=== PATIENT | female | born 1955 | race Caucasian/White ===

== ENCOUNTER 2017-03-18 20:02 | Emergency (ER) | payer MEDICARE, MEDICAID ==
[2017-03-18 21:15] VITALS: BP 147/83
--- NOTE | 2017-03-18 21:39 | EDM.PDOC ---
ED HPI GENERAL MEDICAL PROBLEM - General Chief Complaint: Lower Extremity Injury/Pain Stated Complaint: RT FOOT SWOLLEN AND HURTS CAN HARDLY WALK Time Seen by Provider: 03/18/17 21:35 Source of Information: Reports: Patient History Limitations: Reports: No Limitations - History of Present Illness INITIAL COMMENTS - FREE TEXT/NARRATIVE: Pt was walking on when knee gave out on her, twisting her left foot. Now with increase in foot pain. Unable to wear a shoe. Has not taken anything for pain. Onset: Gradual Onset Date: 03/16/17 Duration: Getting Worse Location: Reports: Lower Extremity, Right Quality: Reports: Pressure Improves with: Reports: Rest Worsens with: Reports: Movement Context: Reports: Activity Associated Symptoms: Reports: No Other Symptoms Treatments PHARMACEUTICAL REPRESENTATIVE: Reports: Acetaminophen Right Feet Pain Score (Numeric/FACES): 8 - Related Data Allergies Allergy/AdvReac Type Severity Reaction Status Date / Time No Known Allergies Allergy Verified 03/18/17 21:22 Home Meds: Home Meds Folic Acid 1 mg PO DAILY 01/16/14 [History] Methotrexate Sodium [Methotrexate] 8 tab PO .EVERY 7 DAYS 01/16/14 [History] Multivitamin with Minerals [Multiple Vitamin] 1 tab PO DAILY 01/16/14 [History] traMADol [Ultram] 1 - 2 tab PO Q6H PRN 01/16/14 [History] Past Medical History Musculoskeletal History: Reports: RA Neurological History: Reports: Migraines - Infectious Disease History Infectious Disease History: Reports: Chicken Pox, Measles, Mumps - Past Surgical History GI Surgical History: Reports: Appendectomy, Cholecystectomy Musculoskeletal Surgical History: Reports: Hip Replacement Social & Family History - Tobacco Use Smoking Status *Q: Never Smoker Second Hand Smoke Exposure: No - Caffeine Use Caffeine Use: Reports: Coffee - Alcohol Use Days Per Week of Alcohol Use: 0 - Recreational Drug Use Recreational Drug Use: No Review of Systems - Review of Systems Review Of Systems: See Below Constitutional: Reports: No Symptoms Ears: Reports: No Symptoms Nose: Reports: No Symptoms Mouth/Throat: Reports: No Symptoms Respiratory: Reports: No Symptoms Cardiovascular: Reports: No Symptoms GI/Abdominal: Reports: No Symptoms Musculoskeletal: Reports: Foot Pain (right) Skin: Reports: No Symptoms Neurological: Reports: No Symptoms ED EXAM, GENERAL - Physical Exam Exam: See Below Exam Limited By: No Limitations General Appearance: Alert, WD/WN, No Apparent Distress Ears: Normal External Exam, Normal Canal, Hearing Grossly Normal, Normal TMs Nose: Normal Inspection, Normal Mucosa, No Blood Throat/Mouth: Normal Inspection, Normal Lips, Normal Teeth, Normal Gums, Normal Oropharynx, Normal Voice, No Airway Compromise Head: Atraumatic, Normocephalic Neck: Normal Inspection, Supple, Non-Tender, Full Range of Motion Respiratory/Chest: No Respiratory Distress, Lungs Clear, Normal Breath Sounds, No Accessory Muscle Use, Chest Non-Tender Cardiovascular: Normal Peripheral Pulses, Regular Rate, Rhythm, No Edema, No Gallop, No JVD, No Murmur, No Rub Extremities: Increased Warmth (mild warmth to top of right foot, tender over 5th metatarsal) Neurological: Alert, Oriented, CN II-XII Intact, Normal Cognition, Normal Gait, Normal Reflexes, No Motor/Sensory Deficits Course - Vital Signs Last Recorded V/S: Last Vital Signs Temp 97.7 F 03/18/17 21:19 Pulse 80 03/18/17 21:19 Resp 18 03/18/17 21:19 BP 147/83 H 03/18/17 21:19 Pulse Ox 96 03/18/17 21:19 - Orders/Labs/Meds Orders: Active Orders 24 hr Category Date Time Status Foot Comp Min 3V Rt [CR] Stat Exams 03/18/17 21:35 Ordered Meds: Medications Discontinued Medications Generic Name Dose Route Start Last Admin Trade Name Jhonatanq PRN Reason Stop Dose Admin Acetaminophen 650 mg 03/18/17 21:43 Tylenol PO 03/18/17 21:44 NOW ONE Departure - Departure Time of Disposition: 22:08 Disposition: Home, Self-Care 01 Condition: Good Clinical Impression: Acute pain of right foot - Discharge Information Referrals: Duc Gonzalez PA [Primary Care Provider] - Forms: ED Department Discharge Additional Instructions: Right foot xray without fracture. Tylenol 650mg po given in ER. May use every 4 hours as needed for pain. To wear a solid shoe for the next week. Fall precautions. Followup if pain persists. - Problem List & Annotations (1) Acute pain of right foot SNOMED Code(s): 32862634 Code(s): M79.671 - PAIN IN RIGHT FOOT Status: Acute Priority: Low Current Visit: Yes - My Orders Last 24 Hours: My Active Orders 03/18/17 21:35 Foot Comp Min 3V Rt [CR] Stat - Assessment/Plan Last 24 Hours: My Active Orders 03/18/17 21:35 Foot Comp Min 3V Rt [CR] Stat
[2017-03-18] MEDS ORDERED: Acetaminophen 325 MG Tab PO ONE (21:43)
--- NOTE | 2017-03-20 09:49 | CR ---
Foot Comp Min 3V Rt INDICATION: foot pain, fell FINDINGS: Degenerative changes most marked in the mid foot. Hammertoe deformities. No acute fracture .
== END 2017-03-18 22:24 | disposition home or self-care (01) ==
LOC: JP.ED 20:02
DX: M79.671 Pain in right foot (principal); G43.909 Migraine, unspecified, not intractable, without status migrainosus; Z90.49 Acquired absence of other specified parts of digestive tract; Z96.649 Presence of unspecified artificial hip joint; Z79.899 Other long term (current) drug therapy
CPT/HCPCS: 73630; 99284; A9270

== ENCOUNTER 2017-05-14 13:17 | Emergency (ER) | payer MEDICARE, MEDICAID ==
[2017-05-14 13:31] VITALS: BP 154/76
--- NOTE | 2017-05-14 13:56 | EDM.PDOC ---
ED HPI GENERAL MEDICAL PROBLEM - General Chief Complaint: Upper Extremity Injury/Pain Stated Complaint: RT WRIST HURTS (NO ACCIDENT) Time Seen by Provider: 05/14/17 13:35 Source of Information: Reports: Patient History Limitations: Reports: No Limitations - History of Present Illness INITIAL COMMENTS - FREE TEXT/NARRATIVE: Marilin presents today with complaints of right wrist pain for three days. She states she has been taking care of her grandchild and lifting/using hands and arms more. She states the pain is aching and dull. She has tried use of julito wrap for pain. Right Wrist Pain Score (Numeric/FACES): 6 - Related Data Allergies Allergy/AdvReac Type Severity Reaction Status Date / Time No Known Allergies Allergy Verified 05/14/17 13:32 Home Meds: Home Meds Folic Acid 1 mg PO DAILY 01/16/14 [History] Methotrexate Sodium [Methotrexate] 8 tab PO .EVERY 7 DAYS 01/16/14 [History] Multivitamin with Minerals [Multiple Vitamin] 1 tab PO DAILY 01/16/14 [History] traMADol [Ultram] 1 - 2 tab PO Q6H PRN 01/16/14 [History] Past Medical History Musculoskeletal History: Reports: RA Neurological History: Reports: Migraines - Infectious Disease History Infectious Disease History: Reports: Chicken Pox, Measles, Mumps - Past Surgical History GI Surgical History: Reports: Appendectomy, Cholecystectomy Musculoskeletal Surgical History: Reports: Hip Replacement Social & Family History - Tobacco Use Smoking Status *Q: Never Smoker Second Hand Smoke Exposure: No - Caffeine Use Caffeine Use: Reports: Coffee - Alcohol Use Days Per Week of Alcohol Use: 0 - Recreational Drug Use Recreational Drug Use: No Review of Systems - Review of Systems Review Of Systems: See Below Constitutional: Denies: Chills, Diaphoresis, Fever, Weakness Respiratory: Reports: No Symptoms Cardiovascular: Reports: No Symptoms GI/Abdominal: Reports: No Symptoms Musculoskeletal: Reports: Arm Pain, Other (Right wrist pain for three days. ) Skin: Denies: Bruising, Pruritis, Rash, Erythema, Wound Neurological: Reports: No Symptoms Psychiatric: Reports: No Symptoms ED EXAM, GENERAL - Physical Exam Exam: See Below Free Text/Narrative:: Marilin is an alert, oriented 61 year old female presenting with complaints of right wrist pain for three days. She denies direct trauma to the wrist, however has been lifting her grandchild frequently. She has a history of osteoporosis. Exam Limited By: No Limitations General Appearance: Alert, WD/WN, No Apparent Distress Eye Exam: Bilateral Eye: EOMI, Normal Inspection Head: Atraumatic, Normocephalic Neck: Normal Inspection, Supple, Non-Tender, Full Range of Motion. No: Lymphadenopathy (R), Lymphadenopathy (L) Respiratory/Chest: No Respiratory Distress, Lungs Clear, Normal Breath Sounds, No Accessory Muscle Use, Chest Non-Tender Cardiovascular: Normal Peripheral Pulses, Regular Rate, Rhythm, No Edema, No Murmur Peripheral Pulses: 2+: Radial (L), Radial (R) Back Exam: Normal Inspection, Full Range of Motion. No: CVA Tenderness (R), CVA Tenderness (L) Extremities: Normal Capillary Refill, Limited Range of Motion, Other ( Tenderness with palpation to distal radius/ulna). No: Joint Swelling, Increased Warmth, Redness Neurological: Alert, Oriented, CN II-XII Intact, Normal Cognition, Normal Gait, No Motor/Sensory Deficits Psychiatric: Normal Affect, Normal Mood Skin Exam: Warm, Dry, Intact, Normal Color, No Rash Lymphatic: No Adenopathy Course - Vital Signs Last Recorded V/S: Last Vital Signs Temp 36.1 C 05/14/17 13:32 Pulse 94 05/14/17 13:32 Resp 16 05/14/17 13:32 BP 154/76 H 05/14/17 13:32 Pulse Ox 98 05/14/17 13:32 - Orders/Labs/Meds Orders: Active Orders 24 hr Category Date Time Status Wrist 2V Rt [CR] Stat Exams 05/14/17 13:48 Taken - Radiology Interpretation Free Text/Narrative:: X-ray of right wrist wet read, negative for acute injury. Patient notified of findings, she is in agreement with plan. Departure - Departure Time of Disposition: 14:14 Disposition: Home, Self-Care 01 Condition: Good Clinical Impression: Right wrist sprain - Discharge Information Referrals: Duc Gonzalez PA [Primary Care Provider] - Forms: ED Department Discharge Additional Instructions: You have been treated for a right wrist sprain. The x-ray of your wrist today was negative for any fractures. Use julito wrap and wrist brace for comfort. Take acetaminophen and naproxen for pain as needed. Elevate, rest and ice the wrist to help with pain. Follow up with your primary provider this week for recheck. Return for worsening issues or concerns. - My Orders Last 24 Hours: My Active Orders 05/14/17 13:48 Wrist 2V Rt [CR] Stat - Assessment/Plan Last 24 Hours: My Active Orders 05/14/17 13:48 Wrist 2V Rt [CR] Stat Assessment:: Right wrist sprain Plan: Patient has been treated for a right wrist sprain. The x-ray of her wrist today was negative for any fractures. Use julito wrap and wrist brace for comfort. Take acetaminophen and naproxen for pain as needed. Elevate, rest and ice the wrist to help with pain. Follow up with primary provider this week for recheck. Return for worsening issues or concerns.
--- NOTE | 2017-05-15 10:34 | CR ---
Wrist 2V Rt INDICATION: right wrist pain FINDINGS: Narrowing of the radiocarpal joint, STT joint, and first MCP and IP joints. No acute fractu re.
== END 2017-05-14 14:25 | disposition home or self-care (01) ==
LOC: JP.ED 13:17
DX: S63.501A Unspecified sprain of right wrist, initial encounter (principal); Z79.899 Other long term (current) drug therapy; X50.1XXA Overexertion from prolonged static or awkward postures, initial encounter
CPT/HCPCS: 73100-26-RT; 73100-RT; 99283; 99284

== ENCOUNTER 2022-05-20 13:46 | Emergency (ER) | payer MEDICARE, MEDICAID ==
[2022-05-20 14:27] VITALS: BP 131/60; PULSE 85
== END 2022-05-20 15:29 | disposition home or self-care (01) ==
LOC: JP.ED 13:46
DX: M25.561 Pain in right knee (principal); M25.562 Pain in left knee; G89.29 Other chronic pain; G43.909 Migraine, unspecified, not intractable, without status migrainosus
CPT/HCPCS: 99283